=== PATIENT | female | born 1985 | race Caucasian/White ===

== ENCOUNTER 2017-07-14 21:31 | Emergency (ER) | payer SELFPAY ==
[~2017-07-14] VITALS: Ht 149.9 cm; Wt 79.5 kg
[2017-07-14 21:58] LABS: EOS # 0.2 (0.04-0.40); EOS % 1.1 % (1.0-5.0); HEMATOCRIT 40.2 % (37.0-47.0); HEMOGLOBIN 13.1 g/dL (12.5-16.0); LYMPH# 4.1 (1.50-4.00); MEAN CELL VOLUME 79 fl (78-100); MEAN CORPUSCULAR HEMOGLOBIN 26 pg (27-31); MEAN CORPUSCULAR HGB CONC 33 g/dL (33-37); MEAN PLATELET VOLUME 8.5 fl (7.4-10.4); MONO # 0.9 (0.20-0.80); NEU # 8.7 (1.40-6.50); RED BLOOD COUNT 5.09 M/mm3 (4.10-5.30); WHITE BLOOD COUNT 13.8 K/mm3 (4.8-10.8)
[2017-07-14 22:02] LABS: PLATELET COUNT 513 K/mm3 (130-400)
[2017-07-14 22:13] LABS: BUN/CREATININE RATIO 8.2 (6.0-26.0); CALCIUM 9.3 mg/dL (8.4-10.2); POTASSIUM 3.9 mmol/L (3.6-5.0); TOTAL BILIRUBIN 0.3 mg/dL (0.2-1.3); TOTAL PROTEIN 8.1 g/dL (6.3-8.2)
[2017-07-14] MEDS ORDERED: TUSSIONEX PENN115 ML PO (23:21)
[2017-07-14] MEDS ORDERED: PREDNISONE20 MG PO (23:21)
[2017-07-14] MEDS ORDERED: TESSALON PERLE100 M1 PO (23:21)
[2017-07-14] MEDS ORDERED: ZITHROMAX 250M250 MG PO (23:21)
[2017-07-14 23:30] VITALS: BP 110/71
== END 2017-07-14 23:30 | disposition home or self-care (01) ==
LOC: ED 21:31
PROVIDERS: Nurse Practitioner Family
DX: J18.0 Bronchopneumonia, unspecified organism (principal)
CPT/HCPCS: J0696; J2930

== ENCOUNTER 2021-03-13 16:19 | Emergency (ER) | payer BC ==
[~2021-03-13] VITALS: Wt 79.5 kg
[~2021-03-13 16:19] MED LIST: PREDNISONE20 MG PO; TESSALON PERLE100 M1 PO; TUSSIONEX PENN115 ML PO; ZITHROMAX 250M250 MG PO
[2021-03-13 18:06] LABS: BASO # 0.01 K/mm3 (0.02-0.10); HEMATOCRIT 45.5 % (37.0-47.0); HEMOGLOBIN 14.5 g/dL (12.5-16.0); LYMPH# 0.93 K/mm3 (1.50-4.00); MEAN CELL VOLUME 81 fl (78-100); MEAN CORPUSCULAR HEMOGLOBIN 26 pg (27-31); MEAN CORPUSCULAR HGB CONC 32 g/dL (33-37); MEAN PLATELET VOLUME 8.8 fl (7.4-10.4); MONO # 0.27 K/mm3 (0.20-0.80); NEU # 3.03 K/mm3 (1.40-6.50); PLATELET COUNT 235 K/mm3 (130-400); RED BLOOD COUNT 5.64 M/mm3 (4.10-5.30); WHITE BLOOD COUNT 4.2 K/mm3 (4.8-10.8)
[2021-03-13 18:16] LABS: ALBUMIN 3.6 g/dL (3.5-5.0)
[2021-03-13 18:17] LABS: POTASSIUM 3.7 mmol/L (3.5-5.1)
[2021-03-13 18:19] LABS: TOTAL PROTEIN 7.4 g/dL (6.4-8.3)
[2021-03-13 18:21] LABS: TOTAL BILIRUBIN 0.2 mg/dL (0.2-1.2)
[2021-03-13 19:04] LABS: URINE APPEARANCE HAZY; URINE BILIRUBIN NEGATIVE (NEGATIVE); URINE BLOOD 250 ery/uL (NEGATIVE); URINE COLOR YELLOW; URINE GLUCOSE NEGATIVE (NEGATIVE); URINE KETONE NEGATIVE (NEGATIVE); URINE LEUKOCYTE ESTERASE TRACE (NEGATIVE); URINE NITRATE POSITIVE (NEGATIVE); URINE PROTEIN(semi-quant) 3+ mg/dL (NEGATIVE); URINE UROBILINOGEN NORMAL (NORMAL)
[2021-03-13] MEDS ORDERED: CEFDINIR300 MG PO (19:42)
[2021-03-13] MEDS ORDERED: ZOFRAN ODT4 MG PO (19:42)
[2021-03-13 20:02] VITALS: BP 119/82
== END 2021-03-13 20:02 | disposition home or self-care (01) ==
LOC: ED 16:19
PROVIDERS: Physician Assistant
DX: U07.1 COVID-19 (principal); N39.0 Urinary tract infection, site not specified
CPT/HCPCS: J2405; J7030

== ENCOUNTER 2023-06-24 17:47 | Emergency (ER) | payer BC ==
[~2023-06-24 17:47] MED LIST changes: -CIPRO250 M1 PO
[2023-06-24 18:45] LABS: BASO # 0.04 K/mm3 (0.02-0.10); EOS # 0.04 K/mm3 (0.04-0.40); EOS % 0.3 % (1.0-5.0); HEMATOCRIT 43.4 % (37.0-47.0); HEMOGLOBIN 13.8 g/dL (12.5-16.0); LYMPH# 1.78 K/mm3 (1.50-4.00); MEAN CELL VOLUME 81 fl (78-100); MEAN CORPUSCULAR HEMOGLOBIN 26 pg (27-31); MEAN CORPUSCULAR HGB CONC 32 g/dL (33-37); MEAN PLATELET VOLUME 8.2 fl (7.4-10.4); MONO # 0.72 K/mm3 (0.20-0.80); NEU # 11.96 K/mm3 (1.40-6.50); PLATELET COUNT 488 K/mm3 (130-400); RED BLOOD COUNT 5.35 M/mm3 (4.10-5.30); RED CELL DISTRIBUTION WIDTH 13.4 % (11.5-14.5); WHITE BLOOD COUNT 14.6 K/mm3 (4.8-10.8)
[2023-06-24 18:48] LABS: ALBUMIN 3.9 g/dL (3.5-5.0)
[2023-06-24 18:49] LABS: CALCIUM 9.4 mg/dL (8.3-10.5)
[2023-06-24 18:51] LABS: TOTAL PROTEIN 7.6 g/dL (6.4-8.3)
[2023-06-24 18:52] LABS: TOTAL BILIRUBIN 0.7 mg/dL (0.2-1.2)
[2023-06-24] MEDS ORDERED: CIPRO250 M1 PO (20:32)
[2023-06-24 21:00] VITALS: BP 129/89
== END 2023-06-24 21:00 | disposition home or self-care (01) ==
LOC: ED 17:47
PROVIDERS: Physician Assistant
DX: N39.0 Urinary tract infection, site not specified (principal)
CPT/HCPCS: J0696; J7030

== ENCOUNTER → 2023-06-24 | Outpatient (CLI) | payer BC ==
[~2023-06-24] MED LIST changes: +CEFDINIR300 MG PO; +CIPRO250 M1 PO; +ZOFRAN ODT4 MG PO
== END ==
LOC: LAB 17:50
DX: N39.0 Urinary tract infection, site not specified (principal)